=== PATIENT | female | born 1950 | race Hispanic/Latino ===

== ENCOUNTER → 2020-02-13 | Day surgery (SDC) | payer MEDICARE, OTHER ==
[2020-02-05 15:06] LABS: BASOPHILS % 0.4 % (0.0-1.0); EOSINOPHILS # (AUTO) 0.2 (0.0-0.4); EOSINOPHILS % 3.5 % (0.0-6.0); HEMATOCRIT 37.5 % (34.2-44.1); HEMOGLOBIN 11.7 g/dL (12.0-16.0); LYMPHOCYTES # (AUTO) 0.7 (1.0-3.2); LYMPHOCYTES % 13.2 % (18.0-39.1); MEAN CORPUSCULAR HEMOGLOBIN 28.1 pg (28-32); MEAN CORPUSCULAR HGB CONC 31.2 g/dL (31-35); MEAN CORPUSCULAR VOLUME 90.1 fL (81-99); MONOCYTES # (AUTO) 0.3 (0.2-0.8); MONOCYTES % 6.3 % (4.4-11.3); NEUTROPHILS # (AUTO) 3.9 (2.1-6.9); PLATELET COUNT 126 x10e3/uL (140-360); RED BLOOD COUNT 4.16 x10e6/uL (3.6-5.1); RED CELL DISTRIBUTION WIDTH 14.3 % (11.7-14.4)
[2020-02-05 15:24] LABS: ALBUMIN 3.3 g/dL (3.5-5.0); ALBUMIN/GLOBULIN RATIO 1.1 (0.8-2.0); ANION GAP 10.9 mmol/L (8-16); CALCIUM 9.2 mg/dL (8.4-10.2); CREATININE, SERUM 1.85 mg/dL (0.57-1.11); POTASSIUM 5.9 mmol/L (3.5-5.1)
--- NOTE | 2020-02-09 09:25 | NUR ---
Followed up with lab regarding pending COVID test results. civil technician stated results are still pending. Addendum: 02/09/20 at 0928 by Karen Delgado RN civil technician stated that the results will probably be back later on today or tomorrow since it was not stat.
[~2020-02-13] VITALS: Ht 160 cm; Wt 103.9 kg
[~2020-02-13] MED LIST: ALPRAZOLAM 0.5 MG TAB ONE; AMLODIPINE BESYL5 MG PO; ASPIR 8181 MG PO; ASPIRIN325 MG PO; BENICAR20 MG PO; CATAPRES-TTS 31 EA TD; CENTRUM SILVER1 EAC3 PO; DIPHENHYDRAMINE HCL 25 MG CAP ONE; FENTANYL CITRATE/PF 100MCG/2 ML INJ ONE; FISH OIL 1,0001 EAC2 PO; FLUOXETINE HCL20 M1 PO; FOLIC ACID PO; FUROSEMIDE40 MG PO; GABAPENTIN300 MG PO; HEPARIN SOD/SOD CHLORIDE 2,000 ML ONE; HUMALOG100 UNIT/1 SC; HYDRALAZINE HCL25 MG PO; HYDROXYCHLOROQ200 MG PO; IOPAMIDOL 370 MG/ML 200 ML INFUS..BTL INJ ONE; IRON PO; IRON SUPPLEMEN325 MG PO; LEVEMIR100 UNIT/1 SC; LIDOCAINE HCL 2% LOCAL 20 ML VIAL ONE; METOPROLOL SUCC50 MG PO; MIDAZOLAM HCL 2 MG/2 ML VIAL ONE; MYCOPHENOLATE250 MG PO; NOVOLOG100 UNIT/1 SC; SIMVASTATIN20 MG PO; SODIUM CHLORIDE 0.9% 1000ML 1,000 ML ONE; SPIRONOLACTONE50 MG PO; TRULICITY1.5 MG/0.5 PO; VALSARTAN-HCTZ1 EAC3 PO; VERAPAMIL HCL 2.5 MG/ML 2 ML VIAL ONE; VICTOZA 2-0.6 MG/0.1 SC; VITAMIN B12-FO1 EACH PO; VITAMIN D32000 UNIT PO
[2020-02-13 13:30] VITALS: BP 121/78
--- NOTE | 2020-02-13 13:39 | Operative Report ---
DATE OF PROCEDURE: 02/13/2020 SURGEON: Jose Berumen MD INDICATIONS: Coronary artery disease, angina with abnormal exercise nuclear stress test. COMPLICATIONS: None. BLOOD LOSS: Minimal. RECOMMENDATIONS: Aggressive medical therapy. PROCEDURES PERFORMED: 1. Ultrasound-guided access in the right radial artery with sheath placement. 2. Conscious sedation, 35 minutes. 3. Left heart catheterization, selective coronary angiography. 4. Deployment of right wrist TR band. DESCRIPTION OF PROCEDURE: Access obtained in the right radial artery. Using ultrasound guidance, a 5-[place] sheath was placed. Coronary angiography demonstrated mid left anterior descending, right coronary and circumflex artery 50% stenosis. Remaining vessel had diffuse 30% to 50% stenosis. No critical occlusions were noted. No intervention deemed necessary. Right wrist TR band applied. The patient discharged home. Jose Berumen MD [facility] /[id number]
[2020-02-13 14:00] VITALS: BP 132/78
[2020-02-13 14:30] VITALS: BP 141/76
--- NOTE | 2020-02-13 14:45 | NUR ---
Pt meets DC criteria. right radial assessed for s/s of complication and presence of hematoma. Overall skin warm, dry, no discolor, and pulses present. IV removed from left hand. Distal tip appears intact. VS WNL. Pt denies pain, sob, or need at this time. Family at front of hospital. Review of discharge paperwork and follow up instructions. verbalized understanding. Pt to wheelchair and transported to front of hospital. Transferred to private vehicle under own strength w/o incident with DC paperwork in hand. - cgf
== END | disposition home or self-care (01) ==
LOC: CATH LAB 11:39
PROVIDERS: ATTEND Internal Medicine Interventional Cardiology
DX: I25.118 Atherosclerotic heart disease of native coronary artery with other forms of angina pectoris (principal); R94.39 Abnormal result of other cardiovascular function study; I10 Essential (primary) hypertension; E78.5 Hyperlipidemia, unspecified; E11.9 Type 2 diabetes mellitus without complications; Z01.812 Encounter for preprocedural laboratory examination; Z11.59 Encounter for screening for other viral diseases; Z79.4 Long term (current) use of insulin; Z79.84 Long term (current) use of oral hypoglycemic drugs; Z79.82 Long term (current) use of aspirin; Z68.39 Body mass index [BMI] 39.0-39.9, adult
CPT/HCPCS: 36415; 76937; 80053; 85025; 87635 ×2; 93454; C1769 ×2; C1887; J2001; J2250; J3010; J7030; Q9967; 99152

== ENCOUNTER → 2021-09-22 | Outpatient (CLI) | payer MEDICARE ==
[~2021-09-22] MED LIST changes: -ALPRAZOLAM 0.5 MG TAB ONE; -DIPHENHYDRAMINE HCL 25 MG CAP ONE; -FENTANYL CITRATE/PF 100MCG/2 ML INJ ONE; -HEPARIN SOD/SOD CHLORIDE 2,000 ML ONE; -IOPAMIDOL 370 MG/ML 200 ML INFUS..BTL INJ ONE; -LIDOCAINE HCL 2% LOCAL 20 ML VIAL ONE; -MIDAZOLAM HCL 2 MG/2 ML VIAL ONE; -SODIUM CHLORIDE 0.9% 1000ML 1,000 ML ONE; -VERAPAMIL HCL 2.5 MG/ML 2 ML VIAL ONE
[2021-09-22 11:20] LABS: CREATININE, SERUM 2.12 mg/dL (0.57-1.11)
== END ==
LOC: MRI 10:24
PROVIDERS: ATTEND Urology
DX: D41.00 Neoplasm of uncertain behavior of unspecified kidney (principal)
CPT/HCPCS: 36415; 74181; 82565; 84520